=== PATIENT | female | born 1975 | race Caucasian/White ===

== ENCOUNTER 2019-05-19 21:20 | Observation (INO) | payer OTHER ==
[2019-05-19] MEDS ORDERED: ASPIRIN 81 MG CHEW TAB PO ONE (21:24)
--- NOTE | 2019-05-19 21:24 | ED Physician Documentation ---
General Adult - HISTORIAN Historian: patient - HPI Stated Complaint: chest pain Chief Complaint: General Adult Onset: days ago Timing: still present Severity: moderate Further Comments: yes (Pt is a 44 yo female with chest pain. Pt has been feeling weak, with episodes of dizziness over the past 3 days. Today pt had pain in her central chest, 3/10 in severity. She has had some slight sob. No n/v, diaphoresis. Pt "just doesn't feel well.") - ROS CONST: weakness EYES/ENT: sore throat, nasal congestion CVS/RESP: chest pain, shortness of breath (slight) GI/: none MS/SKIN/LYMPH: none NEURO/PSYCH: dizziness - PAST HX Past History: other (hypothyroid, HLD, anxiety) Surgeries/Procedures: hysterectomy Allergies/Adverse Reactions: Allergies Allergy/AdvReac Type Severity Reaction Status Date / Time Penicillins Allergy Rash Verified 05/19/19 22:24 Sulfa (Sulfonamide Allergy Rash Verified 05/19/19 22:24 Antibiotics) Tetanus Vaccines and Toxoid Allergy Anaphylaxis Verified 05/19/19 22:24 Home Medications: Ambulatory Orders Medication Instructions Recorded Atorvastatin Calcium [Lipitor] 1 tab PO DAILY 05/19/19 Cetirizine HCl [Zyrtec] 1 tab PO DAILY 05/19/19 Clonazepam [Klonopin] 1 tab PO TID PRN 05/19/19 Levothyroxine Sodium [Euthyrox] 1 tab PO DAILY 05/19/19 - SOCIAL HX Smoking History: quit greater than 1 year - FAMILY HX Family History: No - REVIEWED ASSESSMENTS Nursing Assessment Reviewed: Yes Vitals Reviewed: Yes Progress - Progress Progress: NS 1 L IVF 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 Neg work-up. Persistent bradycardia, with HR in low 50's. Admit to r/o [place]. Admit to ER physician, observation. - EKG/XRAY/CT EKG: rhythm (sinus bradycardia, HR=53; RAD.) XRAY: chest (neg) General Adult Physical Exam - PHYSICAL EXAM GENERAL APPEARANCE: moderate distress EENT: ENT inspection normal NECK: normal inspection, supple RESPIRATORY: no resp distress, chest non-tender, breath sounds normal CVS: bradycardia ABDOMEN: soft, no organomegaly, normal bowel sounds BACK: normal inspection, no CVA tenderness SKIN: warm/dry, normal color EXTREMITIES: non-tender, normal range of motion, no evidence of injury, no edema NEURO: oriented X3, motor nml, sensation nml Discharge Clincal Impression: Chest pain Qualifiers: Chest pain type: unspecified Qualified Code(s): R07.9 - Chest pain, unspecified Referrals: Primary Doctor,No [Primary Care Provider] - Condition: Stable Disposition: 09 ADMITTED INPATIENT Decision to Admit: [id number] Decision Time: 23:48
[2019-05-19] MEDS ORDERED: 0.9 % SODIUM CHLORIDE 1,000 ML IV ONE (21:46)
[2019-05-19] MEDS ORDERED: clonazePAM 0.5 MG TABLET PO PRN (23:42)
[2019-05-20 00:34] VITALS: BMI 27.4
[2019-05-20] MEDS ORDERED: LEVOTHYROXINE SODIUM 50 MCG TABLET ONE (01:09)
[2019-05-20] MEDS ORDERED: clonazePAM 0.5 MG TABLET PO ONE (01:34)
[2019-05-20 02:59] VITALS: BP 123/64
[2019-05-20] MEDS ORDERED: FAMOTIDINE 20 MG/2 ML VIAL IV ONE ×2 (04:20→04:40)
[2019-05-20] MEDS ORDERED: NITROGLYCERIN 0.4 MG TAB.SUBL SL ONE ×2 (04:32→04:33)
[2019-05-20 06:44] LABS: APPEARANCE,URINE CLEAR (CLEAR); COLOR,URINE YELLOW (YELLOW); OCCULT BLOOD,URINE NEGATIVE (NEGATIVE); UROBILINOGEN URINE 0.2 Eu (0.2-1.0)
[2019-05-20 06:48] LABS: BASOPHILS % 0.6 % (0.0-1.5); NEUTROPHILS # 4.7 # k/uL (1.4-7.7)
[2019-05-20 06:49] LABS: eGFR (Non-African) > 60
[2019-05-20] MEDS ORDERED: LEVOTHYROXINE SODIUM 50 MCG TABLET PO SCH (07:00)
--- NOTE | 2019-05-20 08:08 | Diagnostic Imaging Report ---
JACQUELYN HERNANDEZ [facility] [id number] [facility] [address] Report Submission Date: May 19, 2019 9:51:16 PM CDT Patient Study Name: RANJEET ZHENG Date: May 19, 2019 9:21:02 PM CDT Modality Type: DX Gender: F Description: CHEST 1VIEW : 77 Institution: [facility] Physician: JACQUELYN HERNANDEZ EXAMINATION: CHEST 1VIEW HISTORY: chest pain (Hx) / Note time : 05/19/2019 9:46:49 PM User : Erica Samano chest pain (DICOM Hx) (DICOM Hx) COMPARISON: None FINDINGS: There is no focal consolidation, pleural effusion, or pneumothorax. The cardiomediastinal silhouette is normal. The visible bony thorax is intact. IMPRESSION: No acute pulmonary process. Electronically signed on May 19, 2019 9:51:16 PM CDT by: Clayton RODRIGUEZ
[2019-05-20] MEDS ORDERED: ATORVASTATIN CALCIUM 20 MG TABLET PO SCH (09:00)
== END 2019-05-20 05:32 | disposition short-term general hospital (02) ==
LOC: ED 21:20 → SOUTH 23:54
PROVIDERS: ADMIT Emergency Medicine; ATTEND Emergency Medicine
DX: R07.9 Chest pain, unspecified (principal)
CPT/HCPCS: 71045; 80053; 81002; 82550; 82553; 83880; 84443; 84484; 85025; 85379; 85610; 85730; 86308; 93005; 96360; 99282; 99284; G0378; J7030; G0463; S1016

== ENCOUNTER 2019-07-21 11:25 | Outpatient (CLI) | payer OTHER ==
[2019-07-21 13:29] LABS: eGFR (Non-African) > 60
[2019-07-21 13:30] LABS: HDL 40 mg/dL (>40)
== END 2019-07-21 11:30 ==
LOC: LAB 11:25
PROVIDERS: ATTEND Family Medicine
DX: Z13.220 Encounter for screening for lipoid disorders (principal); E03.9 Hypothyroidism, unspecified
CPT/HCPCS: 36415; 80053; 80061; 84443